=== PATIENT | female | born 1975 | race Caucasian/White ===

== ENCOUNTER 2019-10-10 09:24 | Outpatient (CLI) | payer MEDICAID, SELFPAY ==
--- NOTE | 2019-10-10 09:32 | FL_ITS ---
WS: [id number] UPPER GI TECHNICAL: Single contrast Gastrografin FLUOROSCOPY TIME: 1.8 minutes CLINICAL INFORMATION: HIATAL HERNIA W/GERD COMPARISON: None. FINDINGS: Swallowing: Normal. Esophagus: Normal caliber and motility. No evidence of esophageal stricture. Normal esophageal emptyi ng. Small hiatal hernia. No active reflux visualized. Gastroesophageal reflux: None observed. Stomach: Normal. Duodenum: Normal. Other findings: Cholecystectomy clips. FL/FL upper GI gastrografin [id number] IMPRESSION: 1. Normal stomach and duodenum. 2. Normal esophageal emptying. Only a small hiatal hernia. 3. No active reflux visualized in the upright or supine position.
[2019-10-10] MEDS: diatrizoate meglumine 120 mL Sol 240 ML PO (10:35)
== END 2019-10-10 09:25 | disposition home or self-care (01) ==
LOC: RAD 09:28
PROVIDERS: Family Provider Registered Nurse; PCP Registered Nurse; Visit Provider Registered Nurse
DX: K44.9 Diaphragmatic hernia without obstruction or gangrene (principal)
CPT/HCPCS: 74240; Q9963

== ENCOUNTER → 2019-11-02 14:11 | Outpatient (BNVA) | payer MEDICAID, SELFPAY | PROVIDERS: Family Provider Registered Nurse; PCP Registered Nurse; Visit Provider Registered Nurse | DX: B37.9 Candidiasis, unspecified (principal); M54.2 Cervicalgia | CPT/HCPCS: 81003 ==

== ENCOUNTER 2020-06-28 13:30 | Outpatient (CLI) | payer MEDICAID, SELFPAY ==
--- NOTE | 2020-06-28 13:35 | MM_ITS ---
WS: [id number] BILATERAL DIGITAL SCREENING MAMMOGRAPHY WITH CAD CLINICAL INFORMATION: SCREENING HISTORY: Screening mammogram. No current complaints. COMPARISON: TECHNIQUE: Bilateral CC and MLO views. FINDINGS: Bilateral breast implants. The breasts are composed of heterogeneous fibroglandular density tissue, which can limit the detectio n of small underlying mass lesions. No suspicious mass, asymmetry, calcifications, or architectural d istortion. No evidence of malignancy. Vascular calcification. A few punctate calcifications. MM/[place] [id number] IMPRESSION: BI-RADS: 2-Benign FOLLOW UP: 1 Year Follow-up Recommend return to annual screening mammography.
== END 2020-06-28 13:31 | disposition home or self-care (01) ==
LOC: RADSHAW 13:33
PROVIDERS: PCP Registered Nurse; Visit Provider Registered Nurse
DX: Z12.31 Encounter for screening mammogram for malignant neoplasm of breast (principal)
CPT/HCPCS: 77067

== ENCOUNTER → 2020-08-07 09:08 | Outpatient (BNVA) | payer MEDICAID, SELFPAY | PROVIDERS: PCP Registered Nurse; Visit Provider Registered Nurse | DX: R39.9 Unspecified symptoms and signs involving the genitourinary system (principal); Z79.890 Hormone replacement therapy; R10.9 Unspecified abdominal pain | CPT/HCPCS: 36415; 81000 ==

== ENCOUNTER 2020-09-17 09:09 | Outpatient (CLI) | payer BC, MEDICAID, SELFPAY ==
--- NOTE | 2020-09-17 09:30 | US_ITS ---
WS: [id number] ULTRASOUND ABDOMEN LIMITED CLINICAL INFORMATION: R10.9 - Unspecified abdominal pain COMPARISON: None. FINDINGS: Liver Size: Size upper limits of normal Craniocaudal length: 16.1 cm. Echogenicity: Normal. Surface nodularity: None. Mass (size and location): None. Normal hepatopedal flow. Bile ducts Intrahepatic ducts: Normal. Common bile duct diameter: 0.4 cm. Gallbladder Removed Pancreas Normal as visualized. Right kidney: Normal. Hydronephrosis: None. Size: 10.7 cm x 4.5 cm x 4.9 cm. Abdominal aorta and IVC Visualized portions are normal. Ascites: None. US/US abdomen limited [id number] IMPRESSION: 1. Normal liver echogenicity. Liver size upper limits of normal. 2. Prior cholecystectomy. 3. No hydronephrosis in right kidney. 4. No pleural effusion or ascites.
--- NOTE | 2020-09-17 10:15 | US_ITS ---
WS: [id number] ULTRASOUND PELVIS TECHNIQUE: Transabdominal and transvaginal. ULTRASOUND PELVIS TECHNIQUE: Transabdominal. CLINICAL INFORMATION: R10.9 - Unspecified abdominal pain : No. COMPARISON: None. FINDINGS: Uterus is surgically absent Adnexa: Right ovary surgically absent Left ovary size: 4.2 cm x 2.5 cm x 3.5 cm. Incidental corpus luteum cyst Left ovary volume: 19.5 ccm3 Free fluid: None. Other findings: None. US/US pelvic with transvaginal IMPRESSION: 1. Prior hysterectomy. Right oophorectomy. 2. Normal left ovary with incidental corpus luteum cyst. 3. No free fluid in the pelvis.
== END 2020-09-17 09:10 | disposition home or self-care (01) ==
LOC: US 09:13
PROVIDERS: PCP Registered Nurse; Visit Provider Registered Nurse
DX: R10.9 Unspecified abdominal pain (principal); Z90.710 Acquired absence of both cervix and uterus
CPT/HCPCS: 76705; 76830; 76856

== ENCOUNTER → 2021-02-06 00:01 | Outpatient (BNVA) | payer BC, MEDICAID, SELFPAY | PROVIDERS: PCP Registered Nurse; Visit Provider Registered Nurse | DX: I10 Essential (primary) hypertension (principal); G89.29 Other chronic pain; K21.9 Gastro-esophageal reflux disease without esophagitis; K44.9 Diaphragmatic hernia without obstruction or gangrene; M54.2 Cervicalgia; Z79.1 Long term (current) use of non-steroidal anti-inflammatories (NSAID); M54.9 Dorsalgia, unspecified; Z79.890 Hormone replacement therapy; G43.019 Migraine without aura, intractable, without status migrainosus; R63.0 Anorexia | CPT/HCPCS: 80053; 85025 ==